=== PATIENT | female | born 1975 | race American Indian/Alaskan Native ===

== ENCOUNTER 2020-12-20 21:49 | Emergency (ER) | payer MEDICARE ==
[2020-12-20] MEDS ORDERED: IBUPROFEN 600 MG TAB PO ONE (23:53)
[2020-12-20] MEDS ORDERED: HYDROcodone/ACETAMINOPHEN 5-325 MG TAB PO ONE (23:53)
[2020-12-20] MEDS ORDERED: ONDANSETRON 4 MG ODT TAB PO ONE (23:53)
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
[2020-12-21] MEDS ORDERED: cloNIDine 0.2 MG TAB PO ONE (02:02)
[2020-12-21 04:35] VITALS: BP 191/105
== END 2020-12-21 04:53 | disposition home or self-care (01) ==
LOC: ED 21:49
DX: S43.401A Unspecified sprain of right shoulder joint, initial encounter (principal); S73.101A Unspecified sprain of right hip, initial encounter; S39.012A Strain of muscle, fascia and tendon of lower back, initial encounter; I10 Essential (primary) hypertension; F43.0 Acute stress reaction; F41.9 Anxiety disorder, unspecified; E11.9 Type 2 diabetes mellitus without complications; Z88.8 Allergy status to other drugs, medicaments and biological substances; V89.2XXA Person injured in unspecified motor-vehicle accident, traffic, initial encounter; Y93.89 Activity, other specified; Y92.488 Other paved roadways as the place of occurrence of the external cause; Y99.8 Other external cause status
CPT/HCPCS: 99283; Q0162